=== PATIENT | male | born 1945 | race Caucasian/White ===

== ENCOUNTER 2017-07-08 08:19 | Day surgery (SDC) | payer MEDICARE ==
[2017-07-07 16:14] VITALS: BMI 31.8
[2017-07-08 09:14] LABS: #Basophils 0.1 thou/uL (0.0-0.2); #Eosinphils 0.1 thou/uL (0.0-0.7); #Lymphocytes 1.9 thou/uL (1.20-3.40); #Monocytes 0.5 thou/uL (0.11-0.59); #Neutrophils 3.2 thou/uL (1.40-6.50); %Basophils 1.1 % (0.0-1.0); %Eosinophils 2.4 % (0.0-10.0); %Lymphocytes 32.6 % (21.0-51.0); %Monocytes 8.3 % (0.0-10.0); %Neutrophils 55.7 % (42.0-75.0); Hemoglobin 15.6 g/dL (14.0-18.0); Mean Corpuscular HGB CONC 33.9 g/dL (32.0-36.0); Mean Corpuscular Hemoglobin 32.1 pg (27.0-31.0); Mean Corpuscular Volume 94.8 fl (80.0-94.0); Mean Platelet Volume 7.3 fL (7.4-10.4); Platelet Count 168 thou/uL (130-400); RBC Distribution Width 11.6 % (11.5-14.5); Red Blood Cell (RBC) Count 4.85 mill/uL (4.70-6.10); White Blood Cell (WBC) Count 5.8 thou/uL (4.8-10.8)
[2017-07-08 09:18] LABS: INR-International Normal Ratio 1.2
[2017-07-08 09:19] LABS: Anion Gap 12 mmol/L (10-20); BUN (Urea Nitrogen) 21 mg/dL (8.4-25.7); Calc. Creatinine Clearance 111 mL/min (70-130); Calcium 9.2 mg/dL (7.8-10.44); Carbon Dioxide 24 mmol/L (23-31); Chloride 108 mmol/L (98-107); Estimated GFR-MDRD 82; Glucose 111 mg/dL (83-110); PTT 37.4 SEC (22.9-36.1); Potassium 4.4 mmol/L (3.5-5.1); Sodium 140 mmol/L (136-145)
--- NOTE | 2017-07-08 10:00 | PRG ---
DATE OF SERVICE: 07/08/2017 Mr. Diamond came to the outpatient area for atrial flutter ablation. He initially was in atrial flutter and then converted back to sinus rhythm and then back in atrial fibrillation. He says he can feel his heart rate going back and forth. At this point, therefore there is no point in doing a cardioversion since this is paroxysmal. We arthur l cancel the cardioversion. Continue current medical regimen. He will see Dr. Pozo if possible he re to consider setting up a repeat ablation.
--- NOTE | 2017-07-08 14:50 | CON ---
DATE OF CONSULTATION: 07/08/2017 REASON FOR CONSULTATION: Recurrent atrial fibrillation and atypical flutter. PHYSICIAN REQUESTING CONSULTATION: Dr. Drew Cooper. HISTORY OF PRESENT ILLNESS: Marquise Diamond is a 71-year-old gentleman. He has a history of hypert ension and recurrent atrial arrhythmias. He originally underwent a left-sided ablation for atrial fi brillation 12 years ago in [place], [place]. He since then was having trouble with recurrent flutters and underwent a right-sided flutter ablation with Dr. Ross at [facility] 2 years ago. He did v juliana well after that, although he was on Multaq therapy following the second ablation. Recently, lucero tanya, he has had numerous breakthrough episodes of atrial arrhythmias despite Multaq therapy. He has a CHADS 2 score of 2 with hypertension and age and is on Eliquis for anticoagulation. I was asked to see him to consider ablative therapy. PAST MEDICAL HISTORY: 1. Hypertension. 2. Recurrent atrial arrhythmias. He previously had an ablation for his atrial fibrillation reported ly in [place] about 12 years ago and a right-sided flutter ablation 2 years ago at [facility]. 4. CHADS-VASc score of 2, age and hypertension. FAMILY HISTORY: Significant for cancer, negative for arrhythmias, premature coronary artery disease, and diabetes. SOCIAL HISTORY: The patient is a former smoker, quit in 1984. Drinks alcohol, generally 1 or 2 glas ses of wine a day. Denies any illicit drug use. He is retired, [place] outside of [facility]. REVIEW OF SYSTEMS: Allergies: Has no known drug allergies. Constitutional: No fever, chills, nigh t sweats, or other constitutional findings. HEENT: No change in vision or hearing. Neurologic: No TIAs, strokes or seizures. Pulmonary: No reactive airway disease, obstructive lung disease, or rec urrent pneumonias. Gastrointestinal: No acid peptic disease, melena, or hematochezia. Genitourinar y: No frequency or dysuria. Cardiovascular: No claudication. Endocrine: No diabetes or thyroid d ysfunction. Hematologic: No history of blood dyscrasias. Musculoskeletal: No arthritis, arthralgi as or gout. Psychiatric: No depression or anxiety. Dermatologic: No rashes or skin cancer. Autoi mmune: No autoimmune disease. PHYSICAL EXAMINATION: VITAL SIGNS: Blood pressure 130/70, pulse is 70 and regular, respirations 18. GENERAL: This is a healthy appearing gentleman in no acute distress. HEENT: Extraocular muscles are intact. Oropharynx moist. NECK: Supple, with no JVD. HEART: Demonstrates regular rate, normal S1, S2. LUNGS: Clear with symmetric breath sounds. ABDOMEN: Soft. EXTREMITIES: Without edema. SKIN: Warm and dry. NEUROLOGIC: Exam nonfocal. LABORATORY AND X-RAY FINDINGS: Electrocardiogram from yesterday demonstrates what was read as flutte r, but was probably coarse atrial fibrillation or possibly an atypical flutter. The atrial rhythm ap pears to be regularized, but not classic CTI flutter. Ventricular response is fairly regular. QRS i s narrow. MEDICAL DECISION MAKING: I had a 15-minute discussion with Mr. Diamond, we about all treatment o ptions and alternatives. At this point, he is on Multaq for rhythm control and is having documented breakthrough arrhythmias despite this, he has had previous ablations of the left atrium 12 years ago in [place] and of the right-sided flutter in [place] 2 years ago. He has a CHADS VASc score of 2 and is on anticoagulation with Eliquis appropriately. We did discuss nonpharmacologic treatment , particularly ablative therapy which I think could have a relatively high success rate given the par oxysmal nature of his arrhythmias, although he has been diagnosed with flutter recently, I think that the arrhythmia is likely originating from the left atrium. IMPRESSION: 1. Atrial arrhythmias despite previous ablation for atrial fibrillation 12 years ago in [place] and cavotriscuspid isthmus flutter ablation at [facility] 2 years ago. This is also despite Multaq therapy. 2. CHADS-VASc score of 2. 3. History of hypertension. RECOMMENDATIONS: 1. I will provide all information regarding ablative therapy. 2. We will await Mr. Diamond's decision regarding ablation.
== END 2017-07-08 10:50 | disposition home or self-care (01) ==
LOC: SDC 08:19
PROVIDERS: ATTEND Internal Medicine Cardiovascular Disease
DX: I48.0 Paroxysmal atrial fibrillation (principal); I48.4 Atypical atrial flutter; E78.5 Hyperlipidemia, unspecified; I25.110 Atherosclerotic heart disease of native coronary artery with unstable angina pectoris; Z87.891 Personal history of nicotine dependence; Z79.01 Long term (current) use of anticoagulants; Z98.890 Other specified postprocedural states; Z53.8 Procedure and treatment not carried out for other reasons
CPT/HCPCS: 80048; 85025; 85610; 85730